=== PATIENT | male | born 1980 | race American Indian/Alaskan Native ===

== ENCOUNTER 2017-10-04 19:46 | Inpatient (IN) | payer OTHER ==
[2017-10-04 20:46] LABS: Basophils % (Auto) 0.3 % (0.0-1.8); Eosinophils % (Auto) 0.1 % (0.0-4.3); Hematocrit 47.9 % (35.5-45.6); Hemoglobin 15.9 gm/dl (11.8-15.2); Lymphocytes # (Auto) 0.6 K/mm3 (1.2-5.4); Lymphocytes % (Auto) 8.2 % (13.4-35.0); Mean Corpuscular HGB Conc 33 % (32-34); Mean Corpuscular Hemoglobin 33 pg (28-32); Mean Corpuscular Volume 98 fl (84-94); Monocytes # (Auto) 0.5 K/mm3 (0.0-0.8); Monocytes % (Auto) 7.6 % (0.0-7.3); Platelet Count 186 K/mm3 (140-440); Red Blood Count 4.88 M/mm3 (3.65-5.03); Red Cell Distribution Width 13.2 % (13.2-15.2)
[2017-10-04 21:03] LABS: Bacteria,Urine 1+ /HPF (Negative); Bilirubin,Urine SM (Negative); Blood,Urine SM (Negative); Color,Urine Amber (Yellow); Mucus,Urine 3+ /HPF
[2017-10-04 21:04] LABS: Alanine Aminotransferase 18 units/L (7-56); Albumin 4.6 g/dL (3.9-5); BUN/Creatinine Ratio 13; Blood Urea Nitrogen 9 mg/dL (9-20); Calcium 10.7 mg/dL (8.4-10.2); Hemolysis Index 49
[2017-10-04 21:10] LABS: Ictotest,Urine Negative (Negative)
[2017-10-04 21:24] LABS: Lipase 410 units/L (13-60)
[2017-10-04] MEDS ORDERED: MORPHINE ONE (23:53)
[2017-10-04] MEDS ORDERED: NACL 0.9% 1000 ML 1,000 ML ONE (23:53)
[2017-10-04] MEDS ORDERED: NACL 0.9% 1000 ML 1,000 ML IV ONE (23:58)
[2017-10-04] MEDS ORDERED: ZOFRAN IV ONE (23:58)
[2017-10-04] MEDS ORDERED: MORPHINE IV ONE (23:58)
--- NOTE | 2017-10-05 00:02 | Emergency Department Report ---
ED Abdominal Pain HPI - General Chief Complaint: Abdominal Pain Stated Complaint: ABDOMINAL PAIN Time Seen by Provider: 10/04/17 22:46 Source: EMS Mode of arrival: Ambulatory Limitations: No Limitations - History of Present Illness Initial Comments: 36-year-old -L[place] male comes in for severe abdominal pain. Patient reports that is located in the epigastric right upper quadrant. He states that this was born on by eating Huey feet 1 day. Patient admits to nausea and vomiting. Patient has a past medical history of pancreatitis but states he hasn 't stopped drinking months ago. Patient has a past medical history of pancreatitis alcohol abuse and peptic ulcers. She reports is currently taking no medication has no known drug allergies. MD Complaint: abdominal pain -: days(s) (1) Location: LUQ, RUQ, epigastric Radiation: none Severity scale (0 -10): 10 Quality: cramping, sharp Consistency: constant Worsens With: eating Associated Symptoms: nausea, vomiting - Related Data Allergies Allergy/AdvReac Type Severity Reaction Status Date / Time No Known Allergies Allergy Verified 10/05/17 00:12 ED Review of Systems ROS: Stated complaint: ABDOMINAL PAIN Other details as noted in HPI Constitutional: denies: chills, fever Eyes: denies: eye pain, eye discharge, vision change Cardiovascular: denies: chest pain, palpitations Endocrine: no symptoms reported Gastrointestinal: abdominal pain, nausea, vomiting Genitourinary: denies: urgency, dysuria Musculoskeletal: denies: back pain, joint swelling, arthralgia Skin: denies: rash, lesions ED Past Medical Hx - Past Medical History Additional medical history: pancreatitis,alcohol abuse,peptic ulcers - Social History Smoking Status: Current Every Day Smoker Substance Use Type: None ED Physical Exam - General Limitations: No Limitations General appearance: alert, other (pierced to be in pain) - Head Head exam: Present: atraumatic, normocephalic - Eye Eye exam: Present: scleral icterus - ENT ENT exam: Present: mucous membranes moist - Neck Neck exam: Present: normal inspection - GI/Abdominal GI/Abdominal exam: Present: guarding - Extremities Exam Extremities exam: Present: normal inspection, full ROM - Neurological Exam Neurological exam: Present: alert, oriented X3 - Psychiatric Psychiatric exam: Present: normal affect, normal mood - Skin Skin exam: Present: warm, dry, intact, normal color. Absent: rash ED Course Vital Signs 10/04/17 20:10 Temperature 97.9 F Pulse Rate 64 Respiratory 18 Rate Blood Pressure 141/89 O2 Sat by Pulse 100 Oximetry ED Medical Decision Making - Lab Data Result diagrams: 10/04/17 20:16 10/04/17 20:16 - Radiology Data Radiology results: report reviewed, image reviewed FINDINGS: The gallbladder is distended. There is no evidence of wall thickening or stones. The liver is normal size reveals increased echotexture suggesting hepatic steatosis. The common bile duct is normal in caliber at 4.4 mm. The pancreas is normal size and echotexture. Free fluid is not seen. The right kidney is normal size contour and echotexture measuring 11.9 cm x 4.1 cm by 6.2 cm. IMPRESSION: Distended gallbladder. No evidence of gallstones or secondary signs of acute cholecystitis. Hepatic steatosis. Transcribed By: CRUZITO Dictated By: ÁLVARO WOODWARD MD Electronically Authenticated By: ÁLVARO WOODWARD MD Signed Date/Time: 10/05/17104 DD/ 4 TD/TT: 10/05/17104 - Medical Decision Making Patient has been evaluated by this provider fast track. Patient has been moved to room 35 for more comfort. IV normal saline and morphine has been ordered. Ultrasound limited concern for cholecystitis versus choledocholithiasis versus pancreatitis Patient has an lipase of 460 which is 3 times the normal results. CBC normal white count does show some elevated H&H which could be from dehydration. Patient glucose is elevated at 163. Critical care attestation.: If time is entered above; I have spent that time in minutes in the direct care of this critically ill patient, excluding procedure time. ED Disposition Condition: Stable Referrals: VIVIANE DE LEÓN MD [Primary Care Provider] - 3-5 Days
--- NOTE | 2017-10-05 01:10 | Ultrasound Report ---
FINAL REPORT EXAM: US ABDOMEN LIMITED HISTORY: epigastric and ruq pain after fat meal TECHNIQUE: Routine imaging was obtained of the right upper quadrant. FINDINGS: The gallbladder is distended. There is no evidence of wall thickening or stones. The liver is normal size reveals increased echotexture suggesting hepatic steatosis. The common bile duct is normal in caliber at 4.4 mm. The pancreas is normal size and echotexture. Free fluid is not seen. The right kidney is normal size contour and echotexture measuring 11.9 cm x 4.1 cm by 6.2 cm. IMPRESSION: Distended gallbladder. No evidence of gallstones or secondary signs of acute cholecystitis. Hepatic steatosis.
[2017-10-05] MEDS ORDERED: MORPHINE IV ONE (01:41)
[2017-10-05] MEDS ORDERED: NACL 0.9% 1000 ML 1,000 ML IV ONE (01:42)
--- NOTE | 2017-10-05 03:44 | Cat Scan Report ---
FINAL REPORT EXAM: CT ABDOMEN PELVIS W CON HISTORY: abd pain elevated lipase TECHNIQUE: Routine axial imaging was obtained of the abdomen and pelvis following the intravenous injection of 100 cc of Omnipaque 300. Delayed imaging was obtained through the kidneys ureters and bladder. Sagittal coronal reconstructions were also reviewed. FINDINGS: The lung bases are clear. Pleural fluid is not seen. The liver, gallbladder, spleen, and adrenal glands appear normal. The kidneys enhance normally. There is no evidence of hydronephrosis. The vascular structures enhance normally. There is diffuse inflammatory changes of the entire pancreas with peripancreatic edema compatible with severe pancreatitis. The bowel loops are normal in caliber and course. The appendix is not seen. There is minimal free fluid in the deep pelvis. The prostate gland is mildly enlarged. The bladder appears normal. The skeletal structures do not show any acute changes. IMPRESSION: Severe acute pancreatitis as described. Minimal free fluid in the pelvis.
[2017-10-05] MEDS ORDERED: MORPHINE ONE (08:10)
[2017-10-05] MEDS ORDERED: KCL 10 MEQ in D5NS 1,000 ML IV SCH (12:45)
--- NOTE | 2017-10-05 12:52 | History and Physical Report ---
History of Present Illness Date of examination: 10/05/17 Date of admission: 10/04/17 Chief complaint: Acute on chronic pancreatitis Abdominal pain in the epigastrium Hypokalemia History of present illness: Patient is a 36-year-old -[place] male who was a history of hepatitis presented to the emergency department with severe epigastric pain of 2 days duration. Associated with nausea. No vomiting. Pain is 10/10 in severity. No radiation. Constant. No hematemesis or melena. Had similar episodes 4 months ago which was also diagnosed with pancreatic pseudocyst that was drained at [facility]. Used to drink heavily prior to this incidence but drinking 4 months ago. Still he smokes. At the Emergency department lipase was found to be elevated with hypokalemia. CT scan was consistent with severe pancreatitis. Admission was requested. Past History Past Medical History: other (pancreatitis) Past Surgical History: No surgical history Social history: lives with family, smoking. denies: alcohol abuse (quit drinking four months ago) Family history: no significant family history Medications and Allergies Allergies Allergy/AdvReac Type Severity Reaction Status Date / Time No Known Allergies Allergy Verified 10/05/17 00:12 Home Medications Medication Instructions Recorded Confirmed Last Taken Type No Known Home Medications [No 10/05/17 10/05/17 Unknown History Reported Home Medications] Active Meds: Active Medications Famotidine (Pepcid) 20 mg IV BID FADI Heparin Sodium (Porcine) (Heparin) 5,000 unit SUB-Q Q12HR [facility] Potassium Chloride 10 meq/ (Dextrose/Sodium Chloride) 1,005 mls @ 125 mls/hr IV DIRECT [facility]ADI Levofloxacin/Dextrose (Levaquin 750mg/150ml) 750 mg in 150 mls @ 100 mls/hr IV Q24HR [facility]I; Protocol Morphine Sulfate (Morphine) 2 mg IV Q4H PRN PRN Reason: Pain, Moderate (4-6) Review of systems Constitutional: Well Nouridhed and Well developed. Head: NC/ AT Eyes: Denies any visual impairments. No discharge from the eyes Nose: Denies any rhinorrhea or epistaxis Throats: Denies any post nasal drainage. Ears: Denies any hearing deficits Cardiovascular system: Denies any chest pain, shortness of breath, orthopnea, paroxysmal nocturnal dyspnea, or palpitation. Respiratory system: Denies any cough, difficulty breathing, wheezing, pleuritic chest pain, Gastrointestinal system: Has severe epigastric pain, with nausea. no hematemesis or melena. Neurological system: Denies any headache, slurred speech, facial droop, lateralizing weakness Genitalia system: Denies any dysuria, urinary frequency or urgency, urethral discharge Skin: No rashes, hyperpigmented spots. Hematological: Denies any cervical tenderness hemorrhages or petechia. Immunological: Denies any multiple septic spots, Lymphatic: Denies any generalized lymphadenopathy. Endocrine: Denies any polyuria, polydipsia, polyphagia. No heat or cold intolerance. Musculoskeletal system: No joint pain or swelling. Psych: No visual, tactile, auditory or hallucination Exam - Physical Exam Narrative exam: Constitutional: Well-nourished well-developed. In no distress Head: Normocephalic atraumatic Eyes: Pupils are equal round and reactive to light Nose: No enlarged turbinates, no septal deviation. Mouth: Moist mucous membranes. Neck: Supple no thyromegaly. No bruit. No JVD Heart: Regular rate and rhythm, S1-S2 abnormal. No rubs murmurs or gallop Lungs: Clear to auscultation bilaterally no rales or rhonchi Abdomen: Soft, tender. Bowel sound are present. Extremities: No edema no cyanosis and no clubbing. Neuro: Alert oriented Oriented x3. No focal sensory or motor deficit. Skin: No rashes no hyperemic spots Psychiatry: Euthymic. Calm. - Constitutional Vitals: Temp Pulse Resp BP Pulse Ox 97.9 F 64 18 141/89 100 10/04/17 20:10 10/04/17 20:10 10/04/17 20:10 10/04/17 20:10 10/04/17 20:10 Results - Labs CBC & Chem 7: 10/04/17 20:16 10/04/17 20:16 Labs: Abnormal lab results 10/04/17 10/04/17 10/04/17 Range/Units 20:16 20:16 20:32 Hgb 15.9 H (11.8-15.2) gm/dl Hct 47.9 H (35.5-45.6) % MCV 98 H (84-94) fl MCH 33 H (28-32) pg Lymph % (Auto) 8.2 L (13.4-35.0) % [place] % (Auto) 7.6 H (0.0-7.3) % Lymph # 0.6 L (1.2-5.4) K/mm3 Seg Neutrophils % 83.8 H (40.0-70.0) % Chloride 97.6 L (98-107) mmol/L Creatinine 0.7 L (0.8-1.5) mg/dL Glucose 163 H (75-100) mg/dL Calcium 10.7 H (8.4-10.2) mg/dL Total Protein 8.8 H (6.3-8.2) g/dL Amylase 157 H (27-131) units/L Lipase 410 H (13-60) units/L Ur Specific [place] 1.041 H (1.003-1.030) - Imaging and Cardiology CT scan - abdomen: report reviewed US - abdomen: report reviewed Assessment and Plan - Acute on chronic pancreatitis Admits to med such Nothing by mouth, IV hydration, IV Pepcid and pain control with narcotics IV antibiotics Daily lipase monitoring - Hypokalemia Supplement. Check magnesium level. - History of alcohol use disorder Patient stated he quit drinking 4 months ago However she eats Pig flakes which he thinks may have aggravated his current symptoms Dietary discretion advised - Tobacco use disorder Tobacco cessation counseling was done - DVT prophylaxis with Lovenox
[2017-10-05] MEDS: HEPARIN SUB-Q SCH ×2 (13:03→21:29)
[2017-10-05] MEDS: LEVAQUIN 750MG/150ML 750 MG/150 ML BAG IV SCH (13:04)
[2017-10-05] MEDS: PEPCID IV SCH ×2 (13:04→21:29)
[2017-10-05] MEDS: MORPHINE IV PRN ×3 (13:26→22:41)
[2017-10-05] MEDS: KCL IV SCH (15:31)
[2017-10-05] MEDS: NACL 0.9% IV SCH (15:31)
[2017-10-05] MEDS: [UNRECOGNIZED DRUG - OTHER] IV SCH (15:31)
[2017-10-06] MEDS: MORPHINE IV PRN ×4 (03:18→21:21)
[2017-10-06 05:56] LABS: Basophils % (Auto) 0.2 % (0.0-1.8); Eosinophils % (Auto) 0.2 % (0.0-4.3); Hematocrit 44.4 % (35.5-45.6); Hemoglobin 14.9 gm/dl (11.8-15.2); Lymphocytes # (Auto) 1.1 K/mm3 (1.2-5.4); Lymphocytes % (Auto) 16.2 % (13.4-35.0); Mean Corpuscular HGB Conc 34 % (32-34); Mean Corpuscular Hemoglobin 33 pg (28-32); Mean Corpuscular Volume 98 fl (84-94); Monocytes # (Auto) 0.7 K/mm3 (0.0-0.8); Monocytes % (Auto) 9.9 % (0.0-7.3); Platelet Count 140 K/mm3 (140-440); Red Blood Count 4.51 M/mm3 (3.65-5.03); Red Cell Distribution Width 13.1 % (13.2-15.2)
[2017-10-06 06:14] LABS: Alanine Aminotransferase 10 units/L (7-56); Albumin 3.5 g/dL (3.9-5); BUN/Creatinine Ratio 12; Blood Urea Nitrogen 7 mg/dL (9-20); Calcium 9.2 mg/dL (8.4-10.2); Hemolysis Index 3
[2017-10-06] MEDS: KCL 10MEQ/100ML 10 MEQ/100 ML BAG IV SCH ×6 (07:00→17:09)
[2017-10-06] MEDS: HEPARIN SUB-Q SCH ×2 (10:04→21:22)
[2017-10-06] MEDS: PEPCID IV SCH ×2 (10:04→21:21)
[2017-10-06] MEDS: LEVAQUIN 750MG/150ML 750 MG/150 ML BAG IV SCH (10:05)
--- NOTE | 2017-10-06 11:14 | Progress Note ---
Assessment and Plan Assessment and plan: Patient is a 36 yo man with a history of tobacco dependency, alcholic pancreatitis and pancreatic pseudocyst s/p drainage at [facility] History about 4 months ago who pw abd pains. * CT abd/pelvis with IV contrast IMPRESSION: Severe acute pancreatitis as described. Minimal free fluid in the pelvis. * US abdomen limited IMPRESSION: Distended gallbladder. No evidence of gallstones or secondary signs of acute cholecystitis. Hepatic steatosis. -Acute on chronic pancreatitis: Admits to med such Nothing by mouth, IV hydration, IV Pepcid and pain control with narcotics IV antibiotics, Daily lipase monitoring -Severe Hypokalemia: Supplement, Check magnesium level. repeat levels in am -History of alcohol use disorder: Patient stated he quit drinking 4 months ago, However ate entire bag of Pig feet which he thinks may have aggravated his current symptoms, Dietary discretion advised -Tobacco use disorder: Tobacco cessation counseling was done -Fatty liver most likely alcohol related: counseling done -DVT prophylaxis with Lovenox Advance diet and if tolerates then d/c tomorrow History Interval history: Patient was seen and examined. Follow-up on current diagnosis of abd pain, improved, n/v resolved, asking for food/water. Overnight uneventful. Patient denies any chest pain, shortness breath, nausea/vomiting or severe headaches. Imaging, nursing note, chart, labs and old chart reviewed. Discussed with patient. Hospitalist Physical - Physical exam Narrative exam: GEN: WDWN, NAD, Awake, Alert, Orientated x 3 HEENT: NCAT, EOMI, PERRL, OP Clear NECK: supple, no adenopathy, no thyromegaly, no JVD CVS/HEART: RRR, normal S1S2, pulses present bilaterally CHEST/LUNGS: CTA B, Symmetrical chest expansion, good air entry bilaterally GI/Abdomen: soft, epigastric tenderness, good bowel sounds, no guarding or rebound /Bladder: no suprapubic tenderness, no CVA or paraspinal tenderness EXT/Skin: no c/c/e, no obvious rash MSK: FROM x 4 Neuro: CN 2-12 grossly intact, no new focal deficits Psych: calm - Constitutional Vitals: Temp Pulse Resp BP Pulse Ox 98.6 F 78 16 123/85 94 10/06/17 07:32 10/06/17 07:32 10/06/17 07:32 10/06/17 07:32 10/06/17 07:32 Results - Labs CBC & Chem 7: 10/06/17 05:04 10/06/17 05:04 Labs: Laboratory Last Values WBC 6.7 K/mm3 (4.5-11.0) 10/06/17 05:04 RBC 4.51 M/mm3 (3.65-5.03) 10/06/17 05:04 Hgb 14.9 gm/dl (11.8-15.2) 10/06/17 05:04 Hct 44.4 % (35.5-45.6) 10/06/17 05:04 MCV 98 fl (84-94) H 10/06/17 05:04 MCH 33 pg (28-32) H 10/06/17 05:04 MCHC 34 % (32-34) 10/06/17 05:04 RDW 13.1 % (13.2-15.2) L 10/06/17 05:04 Plt Count 140 K/mm3 (140-440) 10/06/17 05:04 Lymph % (Auto) 16.2 % (13.4-35.0) 10/06/17 05:04 [place] % (Auto) 9.9 % (0.0-7.3) H 10/06/17 05:04 Eos % (Auto) 0.2 % (0.0-4.3) 10/06/17 05:04 Baso % (Auto) 0.2 % (0.0-1.8) 10/06/17 05:04 Lymph # 1.1 K/mm3 (1.2-5.4) L 10/06/17 05:04 [place] # 0.7 K/mm3 (0.0-0.8) 10/06/17 05:04 Eos # 0.0 K/mm3 (0.0-0.4) 10/06/17 05:04 Baso # 0.0 K/mm3 (0.0-0.1) 10/06/17 05:04 Seg Neutrophils % 73.5 % (40.0-70.0) H 10/06/17 05:04 Seg Neutrophils # 4.9 K/mm3 (1.8-7.7) 10/06/17 05:04 Sodium 137 mmol/L (137-145) 10/06/17 05:04 Potassium 2.9 mmol/L (3.6-5.0) L* D 10/06/17 05:04 Chloride 97.6 mmol/L (98-107) L 10/06/17 05:04 Carbon Dioxide 25 mmol/L (22-30) 10/06/17 05:04 Anion Gap 17 mmol/L 10/06/17 05:04 BUN 7 mg/dL (9-20) L 10/06/17 05:04 Creatinine 0.6 mg/dL (0.8-1.5) L 10/06/17 05:04 Estimated GFR > 60 ml/min 10/06/17 05:04 BUN/Creatinine Ratio 12 % 10/06/17 05:04 Glucose 129 mg/dL (75-100) H 10/06/17 05:04 Calcium 9.2 mg/dL (8.4-10.2) 10/06/17 05:04 Magnesium 1.70 mg/dL (1.7-2.3) 10/06/17 05:04 Total Bilirubin 0.80 mg/dL (0.1-1.2) 10/06/17 05:04 AST 13 units/L (5-40) 10/06/17 05:04 ALT 10 units/L (7-56) 10/06/17 05:04 Alkaline Phosphatase 85 units/L (35-129) 10/06/17 05:04 Total Protein 7.3 g/dL (6.3-8.2) 10/06/17 05:04 Albumin 3.5 g/dL (3.9-5) L 10/06/17 05:04 Albumin/Globulin Ratio 0.9 % 10/06/17 05:04 Amylase 157 units/L (27-131) H 10/04/17 20:16 Lipase 85 units/L (13-60) H 10/06/17 05:04 Urine Color [place] (Yellow) 10/04/17 20:32 Urine Turbidity Clear (Clear) 10/04/17 20:32 Urine pH 5.0 (5.0-7.0) 10/04/17 20:32 Ur Specific [place] 1.041 (1.003-1.030) H 10/04/17 20:32 Urine Protein 100 mg/dl mg/dL (Negative) 10/04/17 20:32 Urine Glucose (UA) Neg mg/dL (Negative) 10/04/17 20:32 Urine Ketones 20 mg/dL (Negative) 10/04/17 20:32 Urine Blood Sm (Negative) 10/04/17 20:32 Urine Nitrite Neg (Negative) 10/04/17 20:32 Urine Bilirubin Sm (Negative) 10/04/17:32 Urine Ictotest Negative (Negative) 10/04/17: Urine Urobilinogen 2.0 mg/dL (<2.0) 10/04/17 20:32 Ur Leukocyte Esterase Neg (Negative) 10/04/17 20:32 Urine WBC (Auto) 2.0 /HPF (0.0-6.0) 10/04/17 20:32 Urine RBC (Auto) 5.0 /HPF (0.0-6.0) 10/04/17 20:32 Urine Bacteria (Auto) 1+ /HPF (Negative) 10/04/17: Urine Mucus 3+ /HPF 10/04/17 20:32
[2017-10-06] MEDS ORDERED: K-DUR PO ONE (12:00)
[2017-10-06] MEDS: KCL IV SCH (15:38)
[2017-10-06] MEDS: NACL 0.9% IV SCH (15:38)
[2017-10-06] MEDS: [UNRECOGNIZED DRUG - OTHER] IV SCH (15:38)
[2017-10-07 06:21] LABS: Basophils % (Auto) 0.3 % (0.0-1.8); Eosinophils # (Auto) 0.1 K/mm3 (0.0-0.4); Eosinophils % (Auto) 1.1 % (0.0-4.3); Hematocrit 44.6 % (35.5-45.6); Hemoglobin 15.1 gm/dl (11.8-15.2); Lymphocytes # (Auto) 1.3 K/mm3 (1.2-5.4); Lymphocytes % (Auto) 28.4 % (13.4-35.0); Mean Corpuscular HGB Conc 34 % (32-34); Mean Corpuscular Hemoglobin 33 pg (28-32); Mean Corpuscular Volume 98 fl (84-94); Monocytes # (Auto) 0.6 K/mm3 (0.0-0.8); Monocytes % (Auto) 12.5 % (0.0-7.3); Red Blood Count 4.54 M/mm3 (3.65-5.03)
[2017-10-07 06:27] LABS: Platelet Count 149 K/mm3 (140-440)
[2017-10-07 06:48] LABS: Alanine Aminotransferase 10 units/L (7-56); Albumin 3.6 g/dL (3.9-5); BUN/Creatinine Ratio 13; Blood Urea Nitrogen 8 mg/dL (9-20); Calcium 9.4 mg/dL (8.4-10.2); Hemolysis Index 3
[2017-10-07] MEDS ORDERED: LEVAQUIN PO SCH (11:00)
[2017-10-07] MEDS ORDERED: PEPCID PO SCH (11:00)
[2017-10-07] MEDS: HEPARIN SUB-Q SCH (11:18)
--- NOTE | 2017-10-07 11:25 | Discharge Summary ---
Providers - Providers Date of Admission: 10/05/17 12:40 Date of discharge: 10/07/17 Attending physician: SAIGE GALLARDO Primary care physician: [employer] Hospitalization Condition: Stable Hospital course: Patient is a 36 yo man with a history of tobacco dependency, alcholic pancreatitis and pancreatic pseudocyst s/p drainage at [facility] History about 4 months ago who pw abd pains. * CT abd/pelvis with IV contrast IMPRESSION: Severe acute pancreatitis as described. Minimal free fluid in the pelvis. * US abdomen limited IMPRESSION: Distended gallbladder. No evidence of gallstones or secondary signs of acute cholecystitis. Hepatic steatosis. -Acute on chronic pancreatitis: Admits to med such Nothing by mouth, IV hydration, IV Pepcid and pain control with narcotics, IV antibiotics empirically given on admission, Daily lipase monitoring -Severe Hypokalemia: Supplement, Check magnesium level. repeat levels in am -History of alcohol use disorder: Patient stated he quit drinking 4 months ago, However ate entire bag of Pig feet which he thinks may have aggravated his current symptoms, Dietary discretion advised -Tobacco use disorder: Tobacco cessation counseling was done -Fatty liver most likely alcohol related: counseling done -DVT prophylaxis with Lovenox He tolerated a diet and asking for food, asymptotically Disposition: DC-01 TO HOME OR SELFCARE Time spent for discharge: 32 minutes Core Measure Documentation - Palliative Care Palliative Care/ Comfort Measures: Not Applicable - Core Measures Any of the following diagnoses?: none - VTE Discharge Requirements Deep Vein Thrombosis/Pulmonary Embolism Present on Admission: No Has pt received <5 days of overlap therapy or INR<2.0: No Anticoagulant overlap therapy prescribed at discharge: No Contraindication No Overlap Therapy order at DC: Not Indicated Exam - Physical Exam Narrative exam: GEN: WDWN, NAD, Awake, Alert, Orientated x 3 HEENT: NCAT, EOMI, PERRL, OP Clear NECK: supple, no adenopathy, no thyromegaly, no JVD CVS/HEART: RRR, normal S1S2, pulses present bilaterally CHEST/LUNGS: CTA B, Symmetrical chest expansion, good air entry bilaterally GI/Abdomen: soft, epigastric tenderness, good bowel sounds, no guarding or rebound /Bladder: no suprapubic tenderness, no CVA or paraspinal tenderness EXT/Skin: no c/c/e, no obvious rash MSK: FROM x 4 Neuro: CN 2-12 grossly intact, no new focal deficits Psych: calm - Constitutional Vitals: Temp Pulse Resp BP Pulse Ox 98.5 F 65 18 120/83 99 10/07/17 06:36 10/07/17 06:36 10/07/17 06:36 10/07/17 06:36 10/07/17 06:36 Plan Activity: other (no strenous activity until cleared by GI) Diet: advance as tolerated Follow up with: VIVIANE DE LEÓN MD [Primary Care Provider] - 3-5 Days NASIR WINSTON MD [Staff Physician] - 7 Days Prescriptions: HYDROcodone/APAP 5-325 [[place] 5/325] 1 each PO Q4HR PRN #10 tablet PRN Reason: Pain , Severe (7-10)
[2017-10-07] MEDS: PEPCID IV SCH (11:28)
[2017-10-07] MEDS: LEVAQUIN 750MG/150ML 750 MG/150 ML BAG IV SCH (11:28)
[2017-10-07 12:35] VITALS: BP 127/88
== END 2017-10-07 14:00 | disposition home or self-care (01) | DRG 440 ==
LOC: ED 19:46 → 3A 10-05 12:40
PROVIDERS: ADMIT Family Medicine; ATTEND Internal Medicine
DX: K85.90 Acute pancreatitis without necrosis or infection, unspecified (principal); K86.1 Other chronic pancreatitis; F17.200 Nicotine dependence, unspecified, uncomplicated; E87.6 Hypokalemia; K70.0 Alcoholic fatty liver; Z71.6 Tobacco abuse counseling; Z87.11 Personal history of peptic ulcer disease
CPT/HCPCS: 36415; 74177; 76705; 80053; 81001; 82150; 83690; 83735; 85025; 96361; 96374; 96375; 96376; 99284; 99285; J1644; J1956; J2270; J2405; J3480; J7030; J7042; Q9967